=== PATIENT | female | born 1995 | race African-American/Black ===

== ENCOUNTER 2018-04-04 22:14 | Emergency (ER) | payer MEDICAID, OTHER ==
[~2018-04-04] VITALS: Ht 165.1 cm; Wt 113.4 kg
[~2018-04-04 22:14] MED LIST: BENADRYL A12.5 MG/5 ORAL; BENADRYL25 MG ORAL; CIPROFLOXACIN500 M2 ORAL; PHENAZOPYRIDIN100 MG ORAL; PREDNISONE20 MG ORAL
[2018-04-04 22:30] VITALS: BP 122/66
[2018-04-04] MEDS ORDERED: Fluconazole 100mg tab ORAL ONE (23:15)
[2018-04-04 23:23] LABS: BILIRUBIN, URINE NEGATIVE (NEGATIVE); GLUCOSE, URINE (UA) NEGATIVE (NEGATIVE); KETONES,URINE NEGATIVE (NEGATIVE); LEUKOCYTE ESTERASE ,URINE 1+ (NEGATIVE); NITRITE,URINE NEGATIVE (NEGATIVE); PH,URINE 6.5 (4.5-8.0); PROTEIN,URINE NEGATIVE (NEGATIVE); UROBILINOGEN,URINE NORMAL MG/DL (0.0-1.0)
[2018-04-04 23:36] LABS: APPEARANCE,URINE SLIGHTLY CLOUDY; COLOR,URINE YELLOW
[2018-04-04] MEDS ORDERED: CEPHALEXIN500 MG ORAL (23:43)
[2018-04-04] MEDS ORDERED: DIFLUCAN100 MG ORAL (23:43)
[2018-04-04 23:45] VITALS: BP 119/63
--- NOTE | 2018-04-04 23:47 | Emergency Room Report ---
History of Present Illness General Chief Complaint: Female Urogenital Problems Source: Patient Present Illness HPI Patient is a 22-year-old female who presented after increased vaginal discharge. Patient reports having a thick white cheeselike discharge. This had been present for one day. Patient reports having some generalized vaginal itching. He dysuria. She had not been having any fever. The patient is unsure if she is . She been having regular menses. Allergies: Coded Allergies: No Known Allergies (Unverified , 03/01/16) Patient History Past Medical History: see triage record Last Menstrual Period: 03/10/18 Now: No Reviewed Nursing Documentation: PMH: Agreed; PSxH: Agreed Nursing Documentation-PMH Past Medical History: No Stated History Review of Systems All Other Systems: negative except mentioned in HPI Physical Exam Vital Signs Date Time Temp Pulse Resp B/P (MAP) Pulse Ox O2 Delivery O2 Flow Rate FiO2 04/04/18 22:19 98.0 77 18 119/63 33 Room Air 98.1 General Appearance: well appearing, no apparent distress, alert, GCS 15 Head: normocephalic, atraumatic ENT: hearing grossly normal, normal voice Neck: full range of motion, supple Respiratory: no respiratory distress, speaking full sentences Cardiovascular #1: normal inspection, no edema Gastrointestinal: normal inspection, normal bowel sounds, non tender, soft Musculoskeletal: no calf tenderness Neurologic: normal inspection, alert, oriented x3, responsive, motor strength/ tone normal, normal gait Psychiatric: mood/affect normal Skin: normal inspection, no rash Medical Decision Making Diagnostic Impression: Primary Impression: Urinary tract infection ER Course Patient presented for discharge. Differential diagnosis included was not limited to appendicitis, urinary tract infection, pelvic inflammatory disease, urethritis, herpes among others. Patient has a benign exam and does not appear to require any further imaging or laboratory testing at this time. The patient shows evidence of a urinary tract infection. test was negative. Patient was given Diflucan emergency department. She was also given prescription for Keflex for UTI. Patient is given additional doses of discharge recurs.The patient is advised to follow up with primary care doctor in 1-2 days. Patient is advised to return if any worsening condition or if any changes in status that are concerning. This report is dictated with [employer] fabrication machine operator software which may occasionally lead to discrepancies related to use of this software. Labs Test 6/19/18 23:00 Urine Color Yellow Urine Appearance Slightly cloudy Urine pH 6.5 (4.5-8.0) Urine Specific [place] 1.015 (1.005-1.035) Urine Protein Negative (NEGATIVE) Urine Glucose (UA) Negative (NEGATIVE) Urine Ketones Negative (NEGATIVE) Urine Occult Blood 1+ (NEGATIVE) Urine Nitrite Negative (NEGATIVE) Urine Bilirubin Negative (NEGATIVE) Urine Urobilinogen Normal MG/DL (0.0-1.0) Urine Leukocyte Esterase 1+ (NEGATIVE) Urine RBC 2-4 /HPF (0 - 2) Urine WBC 5-10 /HPF (0 - 2) Urine Squamous Epithelial Cells Few /LPF (NONE/OCC) Urine Bacteria Few /HPF (NONE) Urine HCG, Qualitative Negative (NEGATIVE) Last Vital Signs Date Time Temp Pulse Resp B/P (MAP) Pulse Ox O2 Delivery O2 Flow Rate FiO2 04/04/18 22:19 98.0 77 18 119/63 33 Room Air 98.1 Status: improved Disposition: HOME, SELF-CARE Condition: Stable Scripts Fluconazole* (DIFLUCAN*) 100 Mg Tablet 100 MG ORAL DAILY, #1 TAB Prov: Rich Williamson MD 04/04/18 Cephalexin* (KEFLEX*) 500 Mg Capsule 500 MG ORAL EVERY 6 HOURS, #20 CAP Prov: Rich Williamson MD 04/04/18 Patient Instructions: Vaginal Yeast Infection, Adult Rich Williamson MD Apr 04, 2018 23:47
== END 2018-04-04 23:45 | disposition home or self-care (01) ==
LOC: EMR 22:36
DX: N39.0 Urinary tract infection, site not specified (principal)
CPT/HCPCS: 81003; 81025; 99284

== ENCOUNTER 2018-04-07 00:05 | Emergency (ER) | payer MEDICAID, OTHER ==
[~2018-04-07] VITALS: Ht 165.1 cm; Wt 113.4 kg
[~2018-04-07 00:05] MED LIST changes: +CEPHALEXIN500 MG ORAL; +DIFLUCAN100 MG ORAL
[2018-04-07 00:20] VITALS: BP 125/68
[2018-04-07] MEDS ORDERED: TRINESSA1 EAC1 PO (00:24)
--- NOTE | 2018-04-07 00:28 | Emergency Room Report ---
History of Present Illness General Chief Complaint: Skin Rash/Abscess Source: Patient Present Illness HPI 22yo F with a history of eczema c/o 3 days of itchy raised bumps on the intertriginous areas of feet dorsum and hand dorsum, as well as in the web spaces of her toes and fingers; She denies any anal or genital involvement or oral involvement She denies any new lotions, detergents, chemical products, medications, foods or any other new exposures She denies palm or sole involvement as well Allergies: Coded Allergies: No Known Allergies (Unverified , 04/07/18) Patient History Past Medical History: see triage record Last Menstrual Period: now Now: No - control pills Reviewed Nursing Documentation: PMH: Agreed; PSxH: Agreed Nursing Documentation-PMH Past Medical History: No Stated History Review of Systems All Other Systems: negative except mentioned in HPI Physical Exam Vital Signs Date Time Temp Pulse Resp B/P (MAP) Pulse Ox O2 Delivery O2 Flow Rate FiO2 04/07/18 00:18 98.0 81 16 125/68 98 Room Air 98.1 Sp02 EP Interpretation: reviewed, normal General Appearance: no apparent distress, alert, non-toxic Head: normocephalic Eyes: bilateral eye normal inspection, bilateral eye PERRL, bilateral eye EOMI ENT: normal ENT inspection, hearing grossly normal, normal pharynx, no angioedema, normal voice, moist mucus membranes Neck: normal inspection, full range of motion, supple, supple/symm/no masses Respiratory: chest non-tender, lungs clear, normal breath sounds, chest symmetrical, palpation of chest normal Cardiovascular #1: normal peripheral pulses, regular rate, rhythm Cardiovascular #2: 2+ radial (R), 2+ radial (L) Gastrointestinal: normal inspection, non tender, soft, no mass, no guarding, no rebound Rectal: deferred Genitourinary: normal inspection, no CVA tenderness Musculoskeletal: back normal, gait/station normal, normal range of motion, non- tender, no calf tenderness Neurologic: alert, responsive, automobile seat cover installer III-XII nml as tested, motor strength/tone normal, sensory intact, speech normal Psychiatric: judgement/insight normal, memory normal, mood/affect normal, no suicidal/homicidal ideation Skin: normal color, warm/dry, normal turgor, rash - dry, tiny, slightly pruritic raised papules over intertriginous areas of toes and fingers and dorsums of hands and feet Lymphatic: no adenopathy Medical Decision Making Diagnostic Impression: Primary Impression: Rash and other nonspecific skin eruption Additional Impression: Scabies ER Course Rash location, distribution seems consistent with scabies, although no obvious burrows are noted, there are raised tiny papules which are pruritic and may represent scabies infestation Patient was counseled on cleaning her sheets, clothes, any other upholstery, and will be given permethrin, and then if with out resolution in 2-3 days then to take Medrol dosepak and make appointment with dermatology. Last Vital Signs Date Time Temp Pulse Resp B/P (MAP) Pulse Ox O2 Delivery O2 Flow Rate FiO2 04/07/18 00:18 98.0 81 16 125/68 98 Room Air 98.1 Disposition: HOME, SELF-CARE Condition: Stable FRANKLIN DO M.D Apr 07, 2018 00:28
[2018-04-07] MEDS ORDERED: MEDROL4 M1 PO (00:45)
[2018-04-07] MEDS ORDERED: PERMETHRIN60 GM TOPIC (00:45)
[2018-04-07 00:51] VITALS: BP 125/68
== END 2018-04-07 00:50 | disposition home or self-care (01) ==
LOC: EMR 00:35
DX: B86 Scabies (principal)
CPT/HCPCS: 99282

== ENCOUNTER 2018-05-20 00:07 | Emergency (ER) | payer MEDICAID ==
[~2018-05-20] VITALS: Ht 165.1 cm; Wt 104.3 kg
[~2018-05-20 00:07] MED LIST changes: +MEDROL4 M1 PO; +PERMETHRIN60 GM TOPIC; +TRINESSA1 EAC1 PO
[2018-05-20 01:00] VITALS: BP 118/70
[2018-05-20 01:51] LABS: APPEARANCE,URINE CLEAR; BASOPHILS % (AUTO) 0.4 % (0.0-2.0); BILIRUBIN, URINE NEGATIVE (NEGATIVE); GLUCOSE, URINE (UA) NEGATIVE (NEGATIVE); HEMATOCRIT 43.7 % (37.0-47.0); KETONES,URINE 1+ (NEGATIVE); LEUKOCYTE ESTERASE ,URINE 1+ (NEGATIVE); LYMPHOCYTES % (AUTO) 44.1 % (20.0-45.0); MEAN CORPUSCULAR VOLUME 93 FL (80-99); MONOCYTES % (AUTO) 7.1 % (1.0-10.0); NEUTROPHILS % (AUTO) 47.4 % (45.0-75.0); NITRITE,URINE NEGATIVE (NEGATIVE); PH,URINE 6 (4.5-8.0); PLATELET COUNT 203 K/UL (150-450); PROTEIN,URINE 2+ (NEGATIVE); RED BLOOD COUNT 4.72 M/UL (4.20-5.40); RED CELL DISTRIBUTION WIDTH 11.6 % (11.6-14.8); UROBILINOGEN,URINE 1 MG/DL (0.0-1.0); WHITE BLOOD COUNT 6.4 K/UL (4.8-10.8)
[2018-05-20 02:03] LABS: COLOR,URINE YELLOW
--- NOTE | 2018-05-20 02:04 | Emergency Room Report ---
History of Present Illness General Chief Complaint: Abdominal Pain Source: Patient Present Illness HPI Is a 22-year-old female with no significant past medical issue. She presents with chief complaint abdominal cramps and nausea and vomiting for the last week. No diarrhea. Decreased appetite. Decreased urination. No fever or chills. One episode vomiting per day. Does not think that she is . Denies any other complaint. Pain is crampy in nature. Allergies: Coded Allergies: No Known Allergies (Unverified , 04/07/18) Patient History Past Medical History: see triage record, old chart reviewed Past Surgical History: other Pertinent Family History: none Social History: Denies: smoking Last Menstrual Period: may 11 Now: No Immunizations: other Reviewed Nursing Documentation: PMH: Agreed; PSxH: Agreed Nursing Documentation-PMH Past Medical History: No Stated History Review of Systems Eye: Denies: eye pain, blurred vision ENT: Denies: ear pain, nose congestion, throat swelling Respiratory: Denies: cough, shortness of breath Cardiovascular: Denies: chest pain, palpitations Gastrointestinal: Reports: abdominal pain, nausea, vomiting; Denies: diarrhea Musculoskeletal: Denies: back pain, joint pain Skin: Denies: rash Neurological: Denies: headache, numbness Endocrine: Denies: increased thirst, increased urine Hematologic/Lymphatic: Denies: easy bruising All Other Systems: negative except mentioned in HPI Physical Exam Vital Signs Date Time Temp Pulse Resp B/P (MAP) Pulse Ox O2 Delivery O2 Flow Rate FiO2 05/20/18 00:36 97.9 75 18 122/70 99 Room Air 97.9 vitals normal Sp02 EP Interpretation: reviewed, normal General Appearance: well appearing, no apparent distress, alert Head: normocephalic, atraumatic Eyes: bilateral eye PERRL, bilateral eye EOMI ENT: hearing grossly normal, normal pharynx Neck: full range of motion, supple, no meningismus Respiratory: chest non-tender, lungs clear, normal breath sounds Cardiovascular #1: regular rate, rhythm, no murmur Gastrointestinal: normal bowel sounds, non tender, no mass, no organomegaly, no bruit, non-distended Musculoskeletal: back normal, gait/station normal, normal range of motion Psychiatric: mood/affect normal Skin: warm/dry Medical Decision Making Diagnostic Impression: Primary Impression: Abdominal pain Qualified Codes: R10.84 - Generalized abdominal pain Additional Impression: Vomiting Qualified Codes: R11.2 - Nausea with vomiting, unspecified ER Course Patient with abdominal pain and nausea and vomiting. No evidence of obstruction or acute abdomen. No evidence of infection. No evidence of . We'll discharge home. Lab Results Impression labs are normal CT/MRI/US Diagnostic Results CT/MRI/US Diagnostic Results : Imaging Test Ordered: CT abdomen and pelvis Impression negative per radiologist Last Vital Signs Date Time Temp Pulse Resp B/P (MAP) Pulse Ox O2 Delivery O2 Flow Rate FiO2 05/20/18 01:00 97.9 88 18 118/70 99 Room Air 97.9 Status: improved Disposition: HOME, SELF-CARE Condition: Stable Scripts Ondansetron (Zofran) 4 Mg Tablet 4 MG ORAL Q6H PRN for Nausea & Vomiting, #10 TAB 0 Refills Prov: YOGESH JO M.D. 05/20/18 Patient Instructions: Abdominal Pain, Adult Additional Instructions: follow-up with your doctor in 7 days. Return if worse. YOGESH JO M.D. May 20, 2018 02:04
[2018-05-20 02:05] LABS: ANION GAP 6 mmol/L (5-15); BLOOD UREA NITROGEN 10 mg/dL (7-18); CALCIUM 9.4 MG/DL (8.5-10.1); CARBON DIOXIDE 30 MMOL/L (21-32); CHLORIDE 106 MMOL/L (98-107); CREATININE 0.9 MG/DL (0.55-1.30); POTASSIUM 3.8 MMOL/L (3.5-5.1); SODIUM 142 MMOL/L (136-145)
[2018-05-20 02:09] LABS: ALANINE AMINOTRANSFERASE 112 U/L (12-78); ALBUMIN 3.5 G/DL (3.4-5.0); ALBUMIN/GLOBULIN RATIO 0.8 (1.0-2.7); ALKALINE PHOSPHATASE 58 U/L (46-116); ASPARTATE AMINO TRANSFERASE 49 U/L (15-37); BILIRUBIN,TOTAL 0.3 MG/DL (0.2-1.0)
[2018-05-20] MEDS ORDERED: Isovue-300 100ml vial INJ PRN (02:15)
[2018-05-20 03:00] VITALS: BP 122/73
--- NOTE | 2018-05-20 04:05 | Diagnostic Imaging Report ---
EXAM: CT Abdomen and Pelvis With Intravenous Contrast. CLINICAL HISTORY: Abdominal pain. TECHNIQUE: Axial computed tomography images of the abdomen and pelvis with intravenous contrast. CTDI is 29.1 mGy and DLP is 1534 mGy-cm. One or more of the following dose reduction techniques were used: automated exposure control, adjustment of the mA and/or kV according to patient size, use of iterative reconstruction technique. COMPARISON: No relevant prior studies available. FINDINGS: Lower thorax: No acute findings. ABDOMEN: Liver: Mild hepatic steatosis. Gallbladder and bile ducts: Unremarkable. No calcified stones. No ductal dilation. Pancreas: Unremarkable. No ductal dilation. No mass. Spleen: Unremarkable. No splenomegaly. Adrenals: Unremarkable. No mass. Kidneys and ureters: Unremarkable. No hydronephrosis. No solid mass. PELVIS: Bladder: Unremarkable. No mass. Reproductive: Unremarkable as visualized. Appendix: No findings to suggest acute appendicitis. ABDOMEN + PELVIS: Stomach and bowel: Unremarkable. No obstruction. No mucosal thickening. Peritoneum: Unremarkable. No significant fluid collection. No free air. Lymph nodes: Unremarkable. No enlarged lymph nodes. Vasculature: Unremarkable. No aortic aneurysm. Bones: No acute fracture. IMPRESSION: No acute inflammatory or obstructive process seen within the abdomen or pelvis.
[2018-05-20] MEDS ORDERED: ZOFRAN4 MG ORAL (04:10)
[2018-05-20 04:15] VITALS: BP 118/70
== END 2018-05-20 04:15 | disposition home or self-care (01) ==
LOC: EMR 02:31
DX: R10.9 Unspecified abdominal pain (principal); R11.2 Nausea with vomiting, unspecified
CPT/HCPCS: 36415; 74177; 80053; 81003; 81025; 83690; 85025; 96361; 96374; 99284; J2405; Q9967

== ENCOUNTER 2018-07-19 22:52 | Emergency (ER) | payer MEDICAID ==
[~2018-07-19] VITALS: Ht 165.1 cm; Wt 104.3 kg
[~2018-07-19 22:52] MED LIST changes: +ZOFRAN4 MG ORAL
[2018-07-19 23:18] VITALS: BP 118/66
[2018-07-19 23:32] LABS: APPEARANCE,URINE CLEAR; BILIRUBIN, URINE NEGATIVE (NEGATIVE); COLOR,URINE PALE YELLOW; GLUCOSE, URINE (UA) NEGATIVE (NEGATIVE); KETONES,URINE 1+ (NEGATIVE); LEUKOCYTE ESTERASE ,URINE 1+ (NEGATIVE); NITRITE,URINE NEGATIVE (NEGATIVE); PH,URINE 6 (4.5-8.0); PROTEIN,URINE NEGATIVE (NEGATIVE); UROBILINOGEN,URINE NORMAL MG/DL (0.0-1.0)
[2018-07-19] MEDS ORDERED: DOXYCYCLINE MO100 MG ORAL (23:55)
--- NOTE | 2018-07-19 23:58 | Emergency Room Report ---
History of Present Illness General Chief Complaint: Abdominal Pain Source: Patient Present Illness HPI Patient is a 22-year-old female presented after increased abdominal discomfort as well as lower abdominal pain. The patient prior history of urinary infections. She reports having some urinary frequency as well as some left flank pain. She denies having abnormal paps in the past. She denies being . She reports having normal menses. She was noted to have increased white vaginal discharge. Allergies: Coded Allergies: No Known Allergies (Unverified , 04/07/18) Patient History Past Medical History: see triage record Last Menstrual Period: jun 27 Now: No Reviewed Nursing Documentation: PMH: Agreed; PSxH: Agreed Nursing Documentation-PMH Past Medical History: No Stated History Review of Systems All Other Systems: negative except mentioned in HPI Physical Exam Vital Signs Date Time Temp Pulse Resp B/P (MAP) Pulse Ox O2 Delivery O2 Flow Rate FiO2 07/19/18 23:08 98.6 70 16 118/66 99 Room Air 98.6 General Appearance: well appearing, no apparent distress, obese Head: normocephalic, atraumatic ENT: hearing grossly normal, normal voice Neck: full range of motion, supple Respiratory: no respiratory distress, speaking full sentences Gastrointestinal: normal inspection, non tender, soft Genitourinary: other - cervicitis, thick white discharge Musculoskeletal: normal inspection, no calf tenderness Neurologic: normal inspection, alert, oriented x3, responsive, normal gait Psychiatric: mood/affect normal Skin: no rash Medical Decision Making Diagnostic Impression: Primary Impression: Cervicitis ER Course Patient presented for abdominal pain. Differential diagnosis included was not limited to ruptured ovarian cyst, ovarian torsion, bowel obstruction, hernia, ectopic among others. Patient has a benign exam and does not appear to require any further imaging or laboratory testing at this time. The test was negative. Patient does not have evidence of urinary infection. Patient given prescription for doxycycline. She is advised to follow-up for STD testing. The patient is advised to follow up with primary care doctor in 2-3 days. Patient is advised to return if any worsening condition or if any changes in status that are concerning. This report is dictated with [employer] call or contact centre team leader software which may occasionally lead to discrepancies related to use of this software. Labs Test 07/19/18 23:20 Urine Color Pale yellow Urine Appearance Clear Urine pH 6 (4.5-8.0) Urine Specific [place] 1.020 (1.005-1.035) Urine Protein Negative (NEGATIVE) Urine Glucose (UA) Negative (NEGATIVE) Urine Ketones 1+ (NEGATIVE) Urine Blood 1+ (NEGATIVE) Urine Nitrite Negative (NEGATIVE) Urine Bilirubin Negative (NEGATIVE) Urine Urobilinogen Normal MG/DL (0.0-1.0) Urine Leukocyte Esterase 1+ (NEGATIVE) Urine RBC 2-4 /HPF (0 - 2) Urine WBC 0-2 /HPF (0 - 2) Urine Squamous Epithelial Cells Few /LPF (NONE/OCC) Urine Bacteria Few /HPF (NONE) Urine HCG, Qualitative Negative (NEGATIVE) Last Vital Signs Date Time Temp Pulse Resp B/P (MAP) Pulse Ox O2 Delivery O2 Flow Rate FiO2 07/19/18 23:18 98.6 76 16 118/66 99 Room Air 98.6 Status: improved Disposition: HOME, SELF-CARE Condition: Stable Scripts Doxycycline Monohydrate* (DOXYCYCLINE MONOHYDRATE*) 100 Mg Capsule 100 MG ORAL Q12H, #14 CAP 0 Refills Prov: Rich Williamson MD 07/19/18 Patient Instructions: Cervicitis Rich Williamson MD Jul 19, 2018 23:58
[2018-07-20] MEDS ORDERED: Lidocaine 1% MPF 10mg/ml 5ml INJ ONE
[2018-07-20 00:10] VITALS: BP_SYST 115; BP_SYST 118; BP_DIAS 66; BP_DIAS 72
== END 2018-07-20 00:13 | disposition home or self-care (01) ==
LOC: EMR 23:21
DX: N72 Inflammatory disease of cervix uteri (principal)
CPT/HCPCS: 81003; 81025; 96372; 99283; J0696

== ENCOUNTER 2018-08-24 20:20 | Emergency (ER) | payer MEDICAID ==
[~2018-08-24] VITALS: Ht 162.6 cm; Wt 103.9 kg
[~2018-08-24 20:20] MED LIST changes: +DOXYCYCLINE MO100 MG ORAL
[2018-08-24] MEDS ORDERED: Ketorolac 60mg Inj IM ONE (21:15)
[2018-08-24 21:28] LABS: APPEARANCE,URINE CLEAR; BILIRUBIN, URINE NEGATIVE (NEGATIVE); COLOR,URINE PALE YELLOW; GLUCOSE, URINE (UA) NEGATIVE (NEGATIVE); KETONES,URINE NEGATIVE (NEGATIVE); LEUKOCYTE ESTERASE ,URINE NEGATIVE (NEGATIVE); NITRITE,URINE NEGATIVE (NEGATIVE); PH,URINE 7 (4.5-8.0); PROTEIN,URINE NEGATIVE (NEGATIVE); UROBILINOGEN,URINE NORMAL MG/DL (0.0-1.0)
[2018-08-24 21:35] LABS: BASOPHILS % (AUTO) 0.7 % (0.0-2.0); EOSINOPHILS % (AUTO) 1.2 % (0.0-3.0); HEMATOCRIT 37.3 % (37.0-47.0); HEMOGLOBIN 12.7 G/DL (12.0-16.0); LYMPHOCYTES % (AUTO) 36.5 % (20.0-45.0); MEAN CORPUSCULAR VOLUME 93 FL (80-99); MONOCYTES % (AUTO) 6.2 % (1.0-10.0); NEUTROPHILS % (AUTO) 55.4 % (45.0-75.0); PLATELET COUNT 207 K/UL (150-450); RED BLOOD COUNT 4.02 M/UL (4.20-5.40); RED CELL DISTRIBUTION WIDTH 11.2 % (11.6-14.8); WHITE BLOOD COUNT 7.7 K/UL (4.8-10.8)
[2018-08-24 21:45] VITALS: BP 129/71
[2018-08-24 21:50] LABS: ANION GAP 5 mmol/L (5-15); BLOOD UREA NITROGEN 12 mg/dL (7-18); CALCIUM 8.8 MG/DL (8.5-10.1); CARBON DIOXIDE 29 MMOL/L (21-32); CHLORIDE 106 MMOL/L (98-107); CREATININE 0.8 MG/DL (0.55-1.30); POTASSIUM 3.6 MMOL/L (3.5-5.1); SODIUM 140 MMOL/L (136-145)
[2018-08-24] MEDS ORDERED: IBUPROFEN600 MG ORAL (21:56)
--- NOTE | 2018-08-24 22:03 | Emergency Room Report ---
History of Present Illness General Chief Complaint: Abdominal Pain Source: Patient Present Illness HPI Patient presents with complaints of left flank pain Ongoing since tuesday Also lower abdominal pain on the left side Denies any chest pain or shortness of breath denies any vomiting denies any pleurisy Denies any fevers or chills she felt that she also saw some blood in her urine Denies any trauma Allergies: Coded Allergies: No Known Allergies (Unverified , 04/07/18) Patient History Past Medical History: see triage record Pertinent Family History: none Last Menstrual Period: 06/27/2018 Reviewed Nursing Documentation: PMH: Agreed; PSxH: Agreed Nursing Documentation-PMH Past Medical History: No Stated History Review of Systems All Other Systems: negative except mentioned in HPI Physical Exam Vital Signs Date Time Temp Pulse Resp B/P (MAP) Pulse Ox O2 Delivery O2 Flow Rate FiO2 08/24/18 20:37 99.0 85 19 126/65 100 Room Air Sp02 EP Interpretation: reviewed, normal General Appearance: well appearing, no apparent distress Head: normocephalic, atraumatic Eyes: bilateral eye PERRL, bilateral eye EOMI ENT: hearing grossly normal, normal pharynx, TMs + canals normal, uvula midline Neck: full range of motion, supple, no meningismus, no bony tend Respiratory: lungs clear, normal breath sounds, no rhonchi, no respiratory distress, no retraction, no accessory muscle use Cardiovascular #1: normal peripheral pulses, regular rate, rhythm, no edema, no gallop, no JVD, no murmur Gastrointestinal: normal bowel sounds, non tender, soft, no mass, no organomegaly, non-distended, no guarding, no hernia, no pulsatile mass, no rebound Genitourinary: no CVA tenderness - However subjectively points to left flank area for the pain Musculoskeletal: normal inspection Neurologic: oriented x3, responsive, primer charging tool setter III-XII nml as tested, motor strength/ tone normal, sensory intact Psychiatric: mood/affect normal Skin: normal color, no rash, warm/dry, palpation normal Lymphatic: normal inspection, no adenopathy Medical Decision Making Diagnostic Impression: Primary Impression: flank pain ER Course With the patient's history and examination, multiple differentials considered, including but not limited to , ectopic , ovarian torsion, gastritis, cholecystitis, pancreatitis, appendicitis Patient has a fairly benign medical evaluation abdomen is soft Patient was resting comfortably in the room without any signs of distress Initial blood work is appropriate patient's urine does show some amount of blood no obvious infection asking further patient reports that her last menstrual cycle was last month so this could potentially be onset of her next menstrual cycle Other differentials as his kidney stone still possible however given the lack of any obvious discomfort in the patient's workup she will have initial conservative outpatient trial Labs Test 08/24/18 21:00 08/24/18 21:02 Urine Color Pale yellow Urine Appearance Clear Urine pH 7 (4.5-8.0) Urine Specific [place] 1.010 (1.005-1.035) Urine Protein Negative (NEGATIVE) Urine Glucose (UA) Negative (NEGATIVE) Urine Ketones Negative (NEGATIVE) Urine Blood 5+ (NEGATIVE) Urine Nitrite Negative (NEGATIVE) Urine Bilirubin Negative (NEGATIVE) Urine Urobilinogen Normal MG/DL (0.0-1.0) Urine Leukocyte Esterase Negative (NEGATIVE) Urine RBC 2-4 /HPF (0 - 2) Urine WBC 0-2 /HPF (0 - 2) Urine Squamous Epithelial Cells Few /LPF (NONE/OCC) Urine Bacteria Few /HPF (NONE) Urine HCG, Qualitative Negative (NEGATIVE) White Blood Count 7.7 K/UL (4.8-10.8) Red Blood Count 4.02 M/UL (4.20-5.40) Hemoglobin 12.7 G/DL (12.0-16.0) Hematocrit 37.3 % (37.0-47.0) Mean Corpuscular Volume 93 FL (80-99) Mean Corpuscular Hemoglobin 31.5 PG (27.0-31.0) Mean Corpuscular Hemoglobin Concent 33.9 G/DL (32.0-36.0) Red Cell Distribution Width 11.2 % (11.6-14.8) Platelet Count 207 K/UL (150-450) Mean Platelet Volume 7.4 FL (6.5-10.1) Neutrophils (%) (Auto) 55.4 % (45.0-75.0) Lymphocytes (%) (Auto) 36.5 % (20.0-45.0) Monocytes (%) (Auto) 6.2 % (1.0-10.0) Eosinophils (%) (Auto) 1.2 % (0.0-3.0) Basophils (%) (Auto) 0.7 % (0.0-2.0) Sodium Level 140 MMOL/L (136-145) Potassium Level 3.6 MMOL/L (3.5-5.1) Chloride Level 106 MMOL/L (98-107) Carbon Dioxide Level 29 MMOL/L (21-32) Anion Gap 5 mmol/L (5-15) Blood Urea Nitrogen 12 mg/dL (7-18) Creatinine 0.8 MG/DL (0.55-1.30) Estimat Glomerular Filtration Rate > 60 mL/min (>60) Glucose Level 79 MG/DL (74-106) Calcium Level 8.8 MG/DL (8.5-10.1) Lipase 112 U/L (73-393) Last Vital Signs Date Time Temp Pulse Resp B/P (MAP) Pulse Ox O2 Delivery O2 Flow Rate FiO2 08/24/18 20:45 85 19 Room Air 08/24/18 20:37 99.0 126/65 100 Status: improved Disposition: HOME, SELF-CARE Condition: Improved Scripts Ibuprofen* (MOTRIN*) 600 Mg Tablet 600 MG ORAL Q8H PRN for For Pain, #20 TAB 0 Refills Prov: Claudia Kelley DO 08/24/18 Patient Instructions: Flank Pain, [id number], Abdominal Pain, Adult Additional Instructions: Patient is provided with the discharge instructions notified to follow up with primary doctor in the next 2-3 days otherwise return to the er with any worsening symptoms. Please note that this report is being documented using [employer] technology. This can lead to erroneous entry secondary to incorrect interpretation by the dictating instrument. Claudia Kelley DO Aug 24, 2018 22:03
[2018-08-24 22:08] VITALS: BP 129/71
== END 2018-08-24 22:08 | disposition home or self-care (01) ==
LOC: EMR 22:03
DX: R10.32 Left lower quadrant pain (principal)
CPT/HCPCS: 36415; 80048; 81003; 81025; 83690; 85025; 96372; 99284

== ENCOUNTER 2018-10-21 15:55 | Emergency (ER) | payer MEDICAID ==
[~2018-10-21] VITALS: Ht 162.6 cm; Wt 99.8 kg
[~2018-10-21 15:55] MED LIST changes: +IBUPROFEN600 MG ORAL
[2018-10-21 16:05] VITALS: BP 111/59
--- NOTE | 2018-10-21 16:24 | NUR ---
ED Nurse Note: c/o dysuria and sharp low abdominal pain x 1 week; Reports no fever or chills.
[2018-10-21 16:29] LABS: APPEARANCE,URINE CLEAR; BILIRUBIN, URINE NEGATIVE (NEGATIVE); COLOR,URINE PALE YELLOW; GLUCOSE, URINE (UA) NEGATIVE (NEGATIVE); KETONES,URINE NEGATIVE (NEGATIVE); LEUKOCYTE ESTERASE ,URINE 1+ (NEGATIVE); NITRITE,URINE NEGATIVE (NEGATIVE); PH,URINE 8 (4.5-8.0); PROTEIN,URINE NEGATIVE (NEGATIVE); UROBILINOGEN,URINE NORMAL MG/DL (0.0-1.0)
--- NOTE | 2018-10-21 16:38 | Emergency Room Report ---
History of Present Illness General Chief Complaint: Female Urogenital Problems Source: Patient Present Illness HPI 23-year-old female with no significant past medical history here complaining of 1 week of lower abdominal pressure and dysuria. Patient denies hematuria, however complains of urinary frequency. Patient denies flank pain, reports her suprapubic pressure radiates to both her flanks. Denies fever, chills, nausea vomiting. Denies diarrhea, constipation, no other associated symptoms. Patient last menstrual period was 2 weeks ago patient is currently sexually active denies vaginal discharge. Denies history of positive STD. Denies chest pain, shortness of breath, palpation, no other associated symptoms Allergies: Coded Allergies: No Known Allergies (Unverified , 04/07/18) Patient History Past Medical History: see triage record Past Surgical History: none Last Menstrual Period: 10/15/2018 Now: No Immunizations: UTD Reviewed Nursing Documentation: PMH: Agreed; PSxH: Agreed Nursing Documentation-PMH Past Medical History: No Stated History Review of Systems All Other Systems: negative except mentioned in HPI Physical Exam Vital Signs Date Time Temp Pulse Resp B/P (MAP) Pulse Ox O2 Delivery O2 Flow Rate FiO2 10/21/18 16:05 99.1 72 16 111/59 98 Room Air Sp02 EP Interpretation: reviewed, normal General Appearance: normal inspection, well appearing Head: normocephalic Eyes: bilateral eye normal inspection, bilateral eye PERRL ENT: normal ENT inspection Neck: normal inspection Respiratory: normal inspection, chest non-tender, lungs clear, no retraction Cardiovascular #1: normal inspection, no gallop, no murmur Gastrointestinal: normal bowel sounds, soft, no mass Rectal: deferred Genitourinary: no CVA tenderness Musculoskeletal: normal inspection, back normal Neurologic: normal inspection, alert, oriented x3, responsive Psychiatric: normal inspection, judgement/insight normal Skin: normal inspection, normal color, no rash Lymphatic: normal inspection, no adenopathy Medical Decision Making PA Attestation all diagnosis and treatment plans are reviewed and discussed with my supervising physician Dr. Weller Diagnostic Impression: Primary Impression: UTI (urinary tract infection) ER Course 23-year-old female with no significant past medical history here complaining of 1 week of lower abdominal pressure and dysuria. Patient denies hematuria, however complains of urinary frequency. Patient denies flank pain, reports her suprapubic pressure radiates to both her flanks. Denies fever, chills, nausea vomiting. Denies diarrhea, constipation, no other associated symptoms. Patient last menstrual period was 2 weeks ago patient is currently sexually active denies vaginal discharge. Denies history of positive STD. Denies chest pain, shortness of breath, palpation, no other associated symptoms Ddx considered but are not limited to UTI, pyelonephritis, urinary incontinence , sexually transmitted disease Vital signs: are WNL, pt. is afebrile H&PE are most consistent with UTI ORDERS: UA, urine test ED INTERVENTIONS: None required at this time. DISCHARGE: At this time pt. is stable for d/c to home. Will provide printed patient care instructions, and any necessary prescriptions. Care plan and follow up instructions have been discussed with the patient prior to discharge. positive leuk Last Vital Signs Date Time Temp Pulse Resp B/P (MAP) Pulse Ox O2 Delivery O2 Flow Rate FiO2 10/21/18 16:05 99.1 72 16 111/59 98 Room Air Disposition: HOME, SELF-CARE Condition: Stable Patient Instructions: Urinary Tract Infection Jonel Damon Oct 21, 2018 16:38
[2018-10-21] MEDS ORDERED: NITROFURANTOIN100 M2 ORAL (16:39)
[2018-10-21] MEDS ORDERED: PHENAZOPYRIDIN200 MG ORAL (16:39)
[2018-10-21 16:45] VITALS: BP 111/59
--- NOTE | 2018-10-21 16:46 | NUR ---
ED Nurse Note: Patient is being discharged from medical care. Awake, alert and oriented x4. After care instructions, were given. Patient verbalized understanding of After care instructions. All medical devices such as ID band were removed. Patient ambulated out with all personal belongings with steady gait.
== END 2018-10-21 16:46 | disposition home or self-care (01) ==
LOC: EMR 16:35
DX: N39.0 Urinary tract infection, site not specified (principal)
CPT/HCPCS: 81001; 81025; 99283

== ENCOUNTER 2019-05-19 21:22 | Emergency (ER) | payer MEDICAID ==
[~2019-05-19] VITALS: Ht 165.1 cm; Wt 98.0 kg
[~2019-05-19 21:22] MED LIST changes: +NITROFURANTOIN100 M2 ORAL; +PHENAZOPYRIDIN200 MG ORAL
--- NOTE | 2019-05-19 21:32 | NUR ---
ED Nurse Note: Pt walked in to ED C/P headache 07/26 , abdominal discomfort. also has dysuria and browinish discharge from vagina. VSS. pt is alert x4
[2019-05-19 21:33] VITALS: BP 132/70
[2019-05-19] MEDS ORDERED: Metoclopramide 10mg/2ml Inj IVP ONE (22:00)
[2019-05-19] MEDS ORDERED: Acetaminophen 500mg (ES) tab ORAL ONE (22:00)
[2019-05-19 22:14] LABS: BASOPHILS % (AUTO) 1.2 % (0.0-2.0); EOSINOPHILS % (AUTO) 2.2 % (0.0-3.0); HEMATOCRIT 41.7 % (37.0-47.0); HEMOGLOBIN 14.3 G/DL (12.0-16.0); MEAN CORPUSCULAR VOLUME 94 FL (80-99); MONOCYTES % (AUTO) 5.6 % (1.0-10.0); NEUTROPHILS % (AUTO) 47.1 % (45.0-75.0); PLATELET COUNT 217 K/UL (150-450); RED BLOOD COUNT 4.45 M/UL (4.20-5.40); RED CELL DISTRIBUTION WIDTH 11.4 % (11.6-14.8)
--- NOTE | 2019-05-19 22:30 | Emergency Room Report ---
History of Present Illness General Chief Complaint: Headache Source: Patient Present Illness HPI 23-year-old female presents ED for evaluation. Patient complaining of headache x2 days. Frontal, throbbing, 7 out of 10, nonradiating. Denies photophobia or blurry vision. Denies nausea or vomiting. Denies neck stiffness. States she has had frequent urination since yesterday. Notes dysuria. Denies flank pain. She also notices some reddish-brownish vaginal discharge. Denies any recent unprotected sex. No other aggravating relieving factors. Denies any other associated symptoms Allergies: Coded Allergies: No Known Allergies (Unverified , 04/07/18) Patient History Past Medical History: none Past Surgical History: none Pertinent Family History: none Social History: Denies: smoking, alcohol use, drug use Last Menstrual Period: 05/09/19 Now: No : 1 Para: 1 Immunizations: UTD Reviewed Nursing Documentation: PMH: Agreed; PSxH: Agreed Nursing Documentation-PMH Past Medical History: No Stated History Review of Systems All Other Systems: negative except mentioned in HPI Physical Exam Vital Signs Date Time Temp Pulse Resp B/P (MAP) Pulse Ox O2 Delivery O2 Flow Rate FiO2 05/19/19 21:29 98.4 81 18 131/70 (90) 98 Room Air Sp02 EP Interpretation: reviewed, normal General Appearance: no apparent distress, alert, GCS 15, non-toxic Head: normocephalic, atraumatic Eyes: bilateral eye normal inspection, bilateral eye PERRL ENT: hearing grossly normal, normal pharynx, no angioedema, normal voice Neck: full range of motion, supple, no meningismus, supple/symm/no masses Respiratory: chest non-tender, lungs clear, normal breath sounds, speaking full sentences Cardiovascular #1: regular rate, rhythm, no edema Cardiovascular #2: 2+ carotid (R), 2+ carotid (L), 2+ radial (R), 2+ radial (L) , 2+ dorsalis pedis (R), 2+ dorsalis pedis (L) Gastrointestinal: normal bowel sounds, non tender, soft, non-distended, no guarding, no rebound Rectal: deferred Genitourinary: normal inspection, no CVA tenderness Musculoskeletal: back normal, gait/station normal, normal range of motion, non- tender Neurologic: alert, oriented x3, responsive, motor strength/tone normal, sensory intact, speech normal Psychiatric: judgement/insight normal, memory normal, mood/affect normal, no suicidal/homicidal ideation Reflexes: 3+ bicep (R), 3+ bicep (L), 3+ tricep (R), 3+ tricep (L), 3+ knee (R) , 3+ knee (L) Lymphatic: no adenopathy Medical Decision Making Diagnostic Impression: Primary Impression: Urinary tract infection Qualified Codes: N39.0 - Urinary tract infection, site not specified Additional Impression: Headache Qualified Codes: R51 - Headache ER Course Hospital Course 23 yo F presents with frontal headache. dysuria Differential diagnoses include: tension headache, migraine, dehydration, UTI Clinical course Patient placed on stretcher. After initial history and physical I ordered labs , IV fluids, Reglan, tylenol Labs reviewed- electrolytes okay, no leukocytosis, hemoglobin/hematocrit stable. UA + Bacteria Discussed findings with patient. On reassessment headache improved. Given antibiotics here. Given the lack of fever, nuchal rigidity or neurological findings my suspicion for intracranial pathology is low patient be safely discharged to home. safe for discharge for close outpatient follow-up. States she has a PMD i. I feel this is a highly complex case requiring extensive working including EKG/Rhythm strip, Xray/CT/US, Blood/urine lab work, repeat exams while in ED, and administration of strong opiates/narcotics for pain control, admission to hospital or close patient follow up. Diagnosis - headache, UTI stable and discharged to home with Rx Fioricet, Keflex. f/up with PMD. return to ED if symptoms recur/worsen. Labs Test 05/19/19 21:52 05/19/19 22:36 White Blood Count 6.0 K/UL (4.8-10.8) Red Blood Count 4.45 M/UL (4.20-5.40) Hemoglobin 14.3 G/DL (12.0-16.0) Hematocrit 41.7 % (37.0-47.0) Mean Corpuscular Volume 94 FL (80-99) Mean Corpuscular Hemoglobin 32.2 PG (27.0-31.0) Mean Corpuscular Hemoglobin Concent 34.3 G/DL (32.0-36.0) Red Cell Distribution Width 11.4 % (11.6-14.8) Platelet Count 217 K/UL (150-450) Mean Platelet Volume 6.2 FL (6.5-10.1) Neutrophils (%) (Auto) 47.1 % (45.0-75.0) Lymphocytes (%) (Auto) 44.0 % (20.0-45.0) Monocytes (%) (Auto) 5.6 % (1.0-10.0) Eosinophils (%) (Auto) 2.2 % (0.0-3.0) Basophils (%) (Auto) 1.2 % (0.0-2.0) Sodium Level 142 MMOL/L (136-145) Potassium Level 4.0 MMOL/L (3.5-5.1) Chloride Level 105 MMOL/L (98-107) Carbon Dioxide Level 31 MMOL/L (21-32) Anion Gap 6 mmol/L (5-15) Blood Urea Nitrogen 10 mg/dL (7-18) Creatinine 0.9 MG/DL (0.55-1.30) Estimat Glomerular Filtration Rate > 60 mL/min (>60) Glucose Level 70 MG/DL (74-106) Calcium Level 9.4 MG/DL (8.5-10.1) Total Bilirubin 0.4 MG/DL (0.2-1.0) Aspartate Amino Transf (AST/SGOT) 15 U/L (15-37) Alanine Aminotransferase (ALT/SGPT) 15 U/L (12-78) Alkaline Phosphatase 48 U/L (46-116) Total Protein 7.6 G/DL (6.4-8.2) Albumin 3.5 G/DL (3.4-5.0) Globulin 4.1 g/dL Albumin/Globulin Ratio 0.9 (1.0-2.7) Urine Color Yellow Urine Appearance Clear Urine pH 5 (4.5-8.0) Urine Specific [place] 1.025 (1.005-1.035) Urine Protein 1+ (NEGATIVE) Urine Glucose (UA) Negative (NEGATIVE) Urine Ketones Negative (NEGATIVE) Urine Blood 2+ (NEGATIVE) Urine Nitrite Positive (NEGATIVE) Urine Bilirubin Negative (NEGATIVE) Urine Urobilinogen Normal MG/DL (0.0-1.0) Urine Leukocyte Esterase 1+ (NEGATIVE) Urine RBC 2-4 /HPF (0 - 2) Urine WBC 0-2 /HPF (0 - 2) Urine Squamous Epithelial Cells Moderate /LPF (NONE/OCC) Urine Bacteria Few /HPF (NONE) Urine HCG, Qualitative Negative (NEGATIVE) Last Vital Signs Date Time Temp Pulse Resp B/P (MAP) Pulse Ox O2 Delivery O2 Flow Rate FiO2 05/19/19 21:33 98.4 83 18 132/70 98 Room Air Status: improved Disposition: HOME, SELF-CARE Condition: Stable Scripts Acetamin/Butalbital/Caffeine* (FIORICET*) 1 Ea Tab 1 TAB ORAL Q6H, #15 TAB 0 Refills Prov: Marlon Brooks MD 05/19/19 Cephalexin* (KEFLEX*) 500 Mg Capsule 500 MG ORAL EVERY 6 HOURS for 7 Days, CAP Prov: Marlon Brooks MD 05/19/19 Marlon Brooks MD May 19, 2019 22:30
--- NOTE | 2019-05-19 22:31 | NUR ---
ED Nurse Note: pt unable to urinate at this time. stated she voided right before coming to ED. reminded pt that urine is still needed for collection
[2019-05-19 22:33] LABS: ANION GAP 6 mmol/L (5-15); BLOOD UREA NITROGEN 10 mg/dL (7-18); CALCIUM 9.4 MG/DL (8.5-10.1); CARBON DIOXIDE 31 MMOL/L (21-32); CHLORIDE 105 MMOL/L (98-107); CREATININE 0.9 MG/DL (0.55-1.30); SODIUM 142 MMOL/L (136-145)
[2019-05-19 22:38] LABS: ALANINE AMINOTRANSFERASE 15 U/L (12-78); ALBUMIN 3.5 G/DL (3.4-5.0); ALBUMIN/GLOBULIN RATIO 0.9 (1.0-2.7); ALKALINE PHOSPHATASE 48 U/L (46-116); ASPARTATE AMINO TRANSFERASE 15 U/L (15-37); BILIRUBIN,TOTAL 0.4 MG/DL (0.2-1.0)
--- NOTE | 2019-05-19 22:42 | NUR ---
ED Nurse Note: urine collected and sent to lab
[2019-05-19 22:46] LABS: APPEARANCE,URINE CLEAR; BILIRUBIN, URINE NEGATIVE (NEGATIVE); GLUCOSE, URINE (UA) NEGATIVE (NEGATIVE); KETONES,URINE NEGATIVE (NEGATIVE); LEUKOCYTE ESTERASE ,URINE 1+ (NEGATIVE); NITRITE,URINE POSITIVE (NEGATIVE); PH,URINE 5 (4.5-8.0); PROTEIN,URINE 1+ (NEGATIVE); UROBILINOGEN,URINE NORMAL MG/DL (0.0-1.0)
[2019-05-19 22:50] LABS: COLOR,URINE YELLOW
[2019-05-19] MEDS ORDERED: Ketorolac 30mg Inj IV ONE (23:15)
[2019-05-19] MEDS ORDERED: Cephalexin 500mg cap ORAL ONE (23:15)
[2019-05-19] MEDS ORDERED: CEPHALEXIN500 MG ORAL (23:36)
[2019-05-19] MEDS ORDERED: FIORICET1 EA ORAL (23:36)
[2019-05-19 23:40] VITALS: BP 130/73
--- NOTE | 2019-05-19 23:40 | NUR ---
ER DISCHARGE NOTE: Patient is cleared to be discharged per ERMD, pt is aox4, on room air, with stable vital signs. pt was given dc and prescription instructions, pt was able to verbalize understanding, pt id band and iv site removed without complications. pt is able to ambulate with steady gait. pt took all belongings.
== END 2019-05-19 23:40 | disposition home or self-care (01) ==
LOC: EMR 22:45
DX: R51 Headache (principal); N39.0 Urinary tract infection, site not specified
CPT/HCPCS: 36415; 80053; 81003; 81025; 85025; 96361; 96374; 96375; 99284; J1885; J2765